=== PATIENT | male | born 1990 | race Caucasian/White ===

== ENCOUNTER 2017-01-06 08:16 | Emergency (ER) | payer OTHER ==
--- NOTE | 2017-01-06 09:49 | UC ---
Mateus Walls Angela, scribed for Moira Cunningham MD on 01/06/17 at 0940 . General HPI - HPI Summary HPI Summary: This pt is a 26 y/o male presenting to [facility] c/o headache, sore throat, body aches and cough x3 days. Pt additionally c/o diaphoressis at night, chest congestion but no rhinorrhea or productive cough. He states difficulty sleeping x3 days secondary to discomfort and soreness. He reports decreased appetite. Pt has been taking Nyquil for the last 2 days. He last took ibuprofen yesterday. Pt denies chest pain, urinary problems, sick contacts, recent long travel. 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 Pt states he is in contact with a lot of students and some people have been out of work recently. PMHx: asthma at a younger age. PSHx: Tonsillectomy at age 1. Pt is currently on Wellbutrin for bipolar/depression. - History of Current Complaint Chief Complaint: UCGeneralIllness Stated Complaint: SORE THROAT FEELING TIRED Time Seen by Provider: 01/06/17 09:28 Hx Obtained From: Patient Onset/Duration: Lasting Days Timing: Constant Associated Signs & Symptoms: Positive: Cough, Headache, Other - sore throat, body aches, decreased appetite. Negative: Back Pain, Chest Pain, Fever, Nausea , SOB, Vomiting - Allergy/Home Medications Allergies/Adverse Reactions: Allergies Allergy/AdvReac Type Severity Reaction Status Date / Time No Known Allergies Allergy Verified 01/06/17 08:42 Home Medications: Home Medications buPROPion TAB* [Wellbutrin TAB*] 200 mg PO BID 01/06/17 [History Confirmed 01/06] PMH/Surg Hx/FS Hx/Imm Hx Previously Healthy: Yes Other Endocrine History: DENIES: diabetes Other Cardiovascular History: DENIES: HTN Respiratory History: Asthma - at a younger age Psychological History: Depression, Bipolar Disorder - Surgical History Surgical History: Yes Surgery Procedure, Year, and Place: Sukhjinder inserted and removed from femur. knee scopes x 2. 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 Vital Signs: Initial Vital Signs Temp 98.2 F 01/06/17 08:43 Pulse 75 01/06/17 08:43 Resp 16 01/06/17 08:43 BP 138/75 01/06/17 08:43 Pulse Ox 100 01/06/17 08:43 Vital Signs Reviewed: Yes Eyes: Positive: Conjunctiva Clear ENT: Positive: Pharynx normal, Nasal drainage Neck: Positive: Supple, Nontender, No Lymphadenopathy Respiratory: Positive: Chest non-tender, Lungs clear Abdomen Description: Positive: Nontender, No Organomegaly, Soft Musculoskeletal Exam: Normal Neurological Exam: Normal Neurological: Positive: Alert, Muscle Tone Normal Psychological Exam: Normal Skin Exam: Normal Course/Dx - Course Course Of Treatment: Pt is a 26 y/o male c/o headache, body aches, sore throat, cough x3 days. Pt medications reviewed this visit. No findings suggestive of bactierial illness, symptomatic treatment advised. - Differential Dx - Multi-Symptom Provider Diagnoses: viral illness Discharge - Discharge Plan Condition: Stable Disposition: HOME Patient Education Materials: Viral Syndrome (ED) Forms: *Work Release Additional Instructions: This is likely a viral illness which will resolve with time. Use ibuprofen 600mg three times daily for headache and body ache. Ensure high intake of fluids. You might try Zarbee's lozenges for cough and promotion of rest/sleep at night. Return if you develop worsening symptoms, fever or shortness of breath. The documentation as recorded by the Mateus santiago Angela accurately reflects the service I personally performed and the decisions made by me, Moira Cunningham MD.
== END 2017-01-06 09:54 | disposition home or self-care (01) ==
LOC: UCEAST 08:16
DX: B34.9 Viral infection, unspecified (principal); F32.9 Major depressive disorder, single episode, unspecified; Z87.09 Personal history of other diseases of the respiratory system
CPT/HCPCS: 99201; G0463

== ENCOUNTER 2018-07-29 12:20 | Emergency (ER) | payer OTHER ==
[2018-07-29 13:05] VITALS: BP 108/68
[2018-07-29] MEDS ORDERED: Lidocaine 1%* 5 ML VIAL INJ ONE (13:35)
--- NOTE | 2018-07-29 13:35 | UC ---
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- - History Of Current Complaint Chief Complaint: UCGeneralIllness Stated Complaint: LT HANBD LAC Time Seen by Provider: 07/29/18 13:27 Hx Obtained From: Patient Laceration Location: Hand - palm of left hand Mechanism Of Injury: Sharp Trauma Onset/Duration: Sudden Onset Severity: Mild Pain Intensity: 2 Pain Scale Used: 0-10 Numeric Aggravating Factors: Nothing - Allergies/Home Medications Allergies/Adverse Reactions: Allergies Allergy/AdvReac Type Severity Reaction Status Date / Time No Known Allergies Allergy Verified 07/29/18 13:05 Home Medications: Home Medications [place] Carbonate [Purty Rock Carbonate 600 mg cap] 1,350 mg PO DAILY 07/29/18 [ History Confirmed 07/29/18] PMH/Surg Hx/FS Hx/Imm Hx Previously Healthy: Yes Psychological History: Bipolar Disorder - Surgical History Surgical History: Yes Surgery Procedure, Year, and Place: Sukhjinder inserted and removed from femur. knee scopes x 2. tonsils removed - Family History Known Family History: Positive: Hypertension, Diabetes - Social History Occupation: Employed Full-time Lives: With Family Alcohol Use: Rare Substance Use Type: None Smoking Status (MU): Never Smoked Tobacco - Immunization History Most Recent Tetanus Shot: within 5 years Review of Systems All Other Systems Reviewed And Are Negative: Yes Constitutional: Positive: Negative Skin: Positive: Other - 4 cm laceration to palm of hand below 2-3 fingers Eyes: Positive: Negative ENT: Positive: Negative Respiratory: Positive: Negative Cardiovascular: Positive: Negative Gastrointestinal: Positive: Negative Genitourinary: Positive: Negative Motor: Positive: Negative Neurovascular: Positive: Negative Musculoskeletal: Positive: Negative Neurological: Positive: Negative Psychological: Positive: Negative Is Patient Immunocompromised?: No - Comments Additional Review of Systems Comments: full n/m/c and stregth in fingers distal to injury Physical Exam Triage Information Reviewed: Yes Appearance: Well-Appearing, No Pain Distress, Well-Nourished Vital Signs: Initial Vital Signs Temp 99.2 F 07/29/18 13:02 Pulse 60 07/29/18 13:02 Resp 14 07/29/18 13:02 BP 108/68 07/29/18 13:02 Pulse Ox 99 07/29/18 13:02 Vital Signs Reviewed: Yes Eye Exam: Normal Eyes: Positive: Conjunctiva Clear ENT Exam: Normal ENT: Positive: Normal ENT inspection, Hearing grossly normal. Negative: Trismus , Muffled voice, Hoarse voice Dental Exam: Normal Neck exam: Normal Neck: Positive: Supple, Nontender Respiratory Exam: Normal Respiratory: Positive: Chest non-tender, No respiratory distress, No accessory muscle use Cardiovascular Exam: Normal Cardiovascular: Positive: RRR, Pulses Normal, Brisk Capillary Refill Musculoskeletal Exam: Normal Musculoskeletal: Positive: Strength Intact, ROM Intact, No Edema Neurological Exam: Normal Neurological: Positive: Alert, Muscle Tone Normal Psychological Exam: Normal Skin: Positive: Other - 4 cm laceration with moderate amount of oozing blood Laceration Repair - Laceration Repair 1 Description: Linear Laceration Size After Repair: Length (cm) - 4, Width (mm) - 3, Depth (mm) - 2 Modified For Repair: No Type Injection: Local Anesthesia Used: 1.0% Lido - 5ml Cleansing Completed Via Routine Prep: Yes Irrigation With Pressure Irrigation Device: Yes Closure Material: Sutures - 7 number 5.0 nylon Closure Method: Single Layer Re-Evaluation - Re-Evaluation First Eval Change: Improved - tolerated well n/m/c intact, wound well approximated---- Laceration Course/Dx - Course/Dx Course Of Treatment: mild soap and water wash, tetanus up to date per patient, dressing, return in 7- 10 days for suture removal - Diagnosis Provider Diagnosis: Laceration of hand, left Discharge - Sign-Out/Discharge Documenting (check all that apply): Patient Departure All imaging exams completed and their final reports reviewed: No Studies - Discharge Plan Condition: Stable Disposition: HOME Patient Education Materials: Care For Your Stitches (DC), Laceration (DC) Referrals: [facility] [Outside] (7-10 days) Additional Instructions: you may return here for suture removal in 7-10 days - Billing Disposition and Condition Condition: STABLE Disposition: Home
== END 2018-07-29 14:23 | disposition home or self-care (01) ==
LOC: UCEAST 12:20
DX: S61.412A Laceration without foreign body of left hand, initial encounter (principal); W26.8XXA Contact with other sharp object(s), not elsewhere classified, initial encounter; Y92.9 Unspecified place or not applicable; F31.9 Bipolar disorder, unspecified
CPT/HCPCS: 12002; 99211; G0463